=== PATIENT | female | born 1960 | race Caucasian/White ===

== ENCOUNTER 2017-02-03 10:46 | Emergency (ER) | payer BC ==
[2017-02-03 10:54] VITALS: O2SAT 97
[2017-02-03] MEDS ORDERED: XYLOCAINE 1%/Epi 1:100000 MDV 20 ML IJ ONE (11:37)
[2017-02-03] MEDS ORDERED: XYLOCAINE 1%/Epi 1:100000 MDV 20 ML ONE (11:39)
[2017-02-03 12:02] VITALS: BP 130/68; PULSE 78
--- NOTE | 2017-02-03 12:02 | ERPHSYRPT ---
- History of Present Illness Time Seen by Provider: 02/03/17 11:29 Source: patient Patient Subjective Stated Complaint: PT REPORTS TRIPPING ET FALLING-REPORTS LAC OVER LEFT EYE-ABRASIONS TO BILATERAL FOREARMS ET RIGHT ANKLE-DENIES LOC Triage Nursing Assessment: PT PINK WARM ET DRY-PUPILS RESPONSIVE-LAC NOTED TO LEFT EYEBROW WITH BLEEDING CONTROLLED E BUSINESS CONSULTANT-SUPERFICIAL ABRASIONS NOTED WITH CLEAN BANDAGES APPLIED E BUSINESS CONSULTANT Physician History: CC: cut above eye Hx: 56 y/o patient with hx of RA on methotrexate. She fell at home this AM tripping and hitting the left eyebrow on a screendoor frame. No LOC. No double or blurred vision. No neck pain. Tetanus up to date. Works as [employer]. Timing/Duration: today Severity: mild Allergies/Adverse Reactions: hydroxychloroquine [From Plaquenil] Allergy (Intermediate, Verified 02/03/17 10: 57) Rash Sulfa (Sulfonamide Antibiotics) Allergy (Intermediate, Verified 02/03/17 10:57) Rash Home Medications: Duloxetine HCl [Cymbalta] 60 mg PO DAILY 02/03/17 [History] Hydrocodone Bit/Acetaminophen [[place] 5/325Mg] 1 each PO UD 02/03/17 [History] Levothyroxine Sodium 112 Mcg [Synthroid 112 Mcg] 112 mcg PO DAILY 02/03/17 [History] Morphine Sulfate [Morphine Sulfate ER] 30 mg PO BID 02/03/17 [History] Pregabalin [Lyrica 150Mg] 150 mg PO BID 02/03/17 [History] Ropinirole HCl [Ropinirole ER] 16 mg PO HS 02/03/17 [History] Hx Tetanus, Diphtheria Vaccination/Date Given: Yes (2014) Hx Influenza Vaccination/Date Given: Yes Hx Pneumococcal Vaccination/Date Given: No Immunizations Up to Date: Yes - Review of Systems Constitutional: No Symptoms Eyes: No Vision Changes, No Double Vision Abdominal/Gastrointestinal: No Nausea, No Vomiting Musculoskeletal: No Back Pain, No Neck Pain Neurological: No Focal Weakness, No Parasthesia - Past Medical History Pertinent Past Medical History: No - Past Surgical History Past Surgical History: Yes Musculoskeletal: Orthopedic Surgery Female Surgical History: Hysterectomy - Social History Smoking Status: Never smoker Exposure to second hand smoke: No Drug Use: none Patient Lives Alone: No - Nursing Vital Signs Nursing Vital Signs: Initial Vital Signs Temperature 98.2 F Temperature Source Oral Pulse Rate 85 Respiratory Rate 22 Blood Pressure [Right Arm] 136/81 Pain Intensity 4 - Physical Exam General Appearance: alert Eye Exam: PERRL/EOMI Ears, Nose, Throat Exam: normal ENT inspection, moist mucous membranes Neck Exam: normal inspection, non-tender, supple, No midline tenderness Cardiovascular Exam: regular rate/rhythm Back Exam: No vertebral tenderness Extremity Exam: normal inspection, normal range of motion Neurologic Exam: alert, oriented x 3, cooperative, sensation nml, No motor deficits Skin Exam: warm, dry SpO2: 97 Oxygen Delivery: Room Air Comments: 02/03/17 12:00 1.5 cm laceration above left eyebrow. No apparent bony injury. No facial bone tenderness. EOMI. Normal eye. Procedures - Laceration/Wound Repair left eyebrow Wound Length (cm): 1.5 Wound's Depth, Shape: linear Wound Explored: clean Hibiclens Prep: Yes Anesthesia: local, 1% lidocaine w/ Epi Volume Anesthetic (ccs): 2.5 Wound Repaired With: sutures Suture Size/Type: 5-0, prolene Number of Sutures: 3 - Course Nursing assessment & vital signs reviewed: Yes Ordered Tests: Active Orders 24 hr Category Date Time Status Prepare for Sutures STAT Care 02/03/17 11:37 Active Sutures STAT Care 02/03/17 11:38 Active Wound Care STAT Care 02/03/17 11:37 Active Medication Summary Discontinued Medications Generic Name Dose Route Start Last Admin Trade Name Jorgeq PRN Reason Stop Dose Admin Lidocaine/Epinephrine 5 ml 02/03/17 11:37 02/03/17 11:41 Xylocaine 1%/Epi [id number] Mdv 20 Ml IJ 02/03/17 11:38 5 ml STAT ONE Administration Lidocaine/Epinephrine Confirm 02/03/17 11:39 Xylocaine 1%/Epi 1:[id number] Mdv 20 Ml Administered 02/03/17 11:40 Dose 1 ml .ROUTE .STK-MED ONE - Progress Counseled pt/family regarding: diagnosis, need for follow-up - Departure Time of Disposition: 12:01 Departure Disposition: Home Clinical Impression: Laceration of left eyebrow Qualifiers: Encounter type: initial encounter Qualified Code(s): S01.112A - Laceration without foreign body of left eyelid and periocular area, initial encounter Condition: Stable Critical Care Time: No Referrals: PETE MCCLELLAND [Primary Care Provider] - Instructions: Care for a Laceration After Repair Additional Instructions: LACERATION CARE 1. Do not use peroxide, merthiolate, alcohol, or betadine. 2. Keep wound clean and dry. 3. Change dressing if it becomes wet or soiled. 4. If you must work, wear protective covering. 5. You may return to the emergency department or see your family physician for suture removal. 6. See your family physician or return to the emergency department for any of the following signs or symptoms: A. Redness B. Swelling C. Discolored drainage D. Red streaks E. Elevated temperature F. Other signs of infection Suture removal in 5-7 days.
== END 2017-02-03 12:17 | disposition home or self-care (01) ==
LOC: ED 10:46
PROC: 0HQ1XZZ Repair Face Skin, External Approach (ICD-10-PCS; principal; 2017-02-03)
DX: S01.112A Laceration without foreign body of left eyelid and periocular area, initial encounter (principal); W01.198A Fall on same level from slipping, tripping and stumbling with subsequent striking against other object, initial encounter
CPT/HCPCS: 12011; 99283